=== PATIENT | female | born 1990 | race Two or more races ===

== ENCOUNTER → 2023-08-31 | Outpatient (CLI) | payer OTHER ==
[2023-08-31 13:54] LABS: HEMATOCRIT 38.8 % (36.0-47.0); HEMOGLOBIN 12.8 g/dl (12.0-15.5); MEAN CORPUSCULAR HEMOGLOBIN 30.3 pg (27.0-33.0); MEAN CORPUSCULAR VOLUME 91.9 fl (80.0-96.0); PLATELET COUNT, AUTOMATED 176 10^3/uL (150-450); RED BLOOD COUNT 4.22 10^6/uL (4.00-5.40); WHITE BLOOD COUNT 5.6 10^3/uL (4.0-10.0)
[2023-08-31 14:48] LABS: HIV 1&2 SCREEN NEGATIVE (NEGATIVE)
[2023-08-31 14:57] LABS: HEPATITIS C VIRUS ABY INDEX 0.04 INDEX (<0.8)
[2023-08-31 15:06] LABS: GC DNA AMPLIFICATION NEGATIVE (NEGATIVE)
== END ==
LOC: M PLALAB 11:27
PROVIDERS: ATTEND Specialist
DX: Z34.01 Encounter for supervision of normal first pregnancy, first trimester (principal)

== ENCOUNTER → 2023-09-07 | Outpatient (CLI) | payer OTHER | LOC: M PLALAB 13:34 | PROVIDERS: ATTEND Specialist | DX: Z34.01 Encounter for supervision of normal first pregnancy, first trimester (principal) ==

== ENCOUNTER → 2023-11-03 | Outpatient (CLI) | payer OTHER ==
[2023-11-03 16:52] LABS: FREE T4 0.93 NG/DL (0.89-1.76)
[2023-11-03 16:53] LABS: THYROID STIMULATING HORMONE 3.865 uIU/ML (0.55-4.78)
== END ==
LOC: M PLALAB 14:13
PROVIDERS: ATTEND Specialist
DX: Z34.92 Encounter for supervision of normal pregnancy, unspecified, second trimester (principal)

== ENCOUNTER → 2023-11-03 | Outpatient (CLI) | payer OTHER | LOC: M WHC 12:35 | PROVIDERS: ATTEND Specialist | DX: Z34.01 Encounter for supervision of normal first pregnancy, first trimester (principal) ==

== ENCOUNTER → 2023-12-15 | Outpatient (CLI) | payer OTHER ==
[2023-12-15 16:34] LABS: HEMATOCRIT 34.6 % (36.0-47.0); HEMOGLOBIN 11.5 g/dl (12.0-15.5); MEAN CORPUSCULAR HEMOGLOBIN 29.3 pg (27.0-33.0); MEAN CORPUSCULAR HGB CONC 33.2 g/dl (32.0-36.5); MEAN CORPUSCULAR VOLUME 88.3 fl (80.0-96.0); PLATELET COUNT, AUTOMATED 160 10^3/uL (150-450); RED BLOOD COUNT 3.92 10^6/uL (4.00-5.40); WHITE BLOOD COUNT 7.4 10^3/uL (4.0-10.0)
== END ==
LOC: M PLALAB 13:41
PROVIDERS: ATTEND Specialist
DX: Z34.82 Encounter for supervision of other normal pregnancy, second trimester (principal)

== ENCOUNTER → 2023-12-20 | Outpatient (CLI) | payer OTHER | LOC: M WHC 10:39 | PROVIDERS: ATTEND Specialist | DX: O32.2XX0 Maternal care for transverse and oblique lie, not applicable or unspecified (principal); Z3A.26 26 weeks gestation of pregnancy ==

== ENCOUNTER → 2024-02-29 | Outpatient (REF) | payer OTHER | LOC: M SFHCWAGY 09:51 | PROVIDERS: ATTEND Advanced Practice Midwife | DX: Z34.93 Encounter for supervision of normal pregnancy, unspecified, third trimester (principal); Z36.85 Encounter for antenatal screening for Streptococcus B ==

== ENCOUNTER 2024-03-08 | Outpatient (CLI) | payer OTHER ==
[~2024-03-08] VITALS: Ht 170.2 cm; Wt 141.9 kg
[2024-03-08] MEDS ORDERED: TIRO88CA3 PO (00:11)
[2024-03-08] MEDS ORDERED: PRENTAB9 PO (00:11)
[2024-03-08] MEDS ORDERED: HOME MED LIST COMPLETE! XX SCH (00:15)
[2024-03-08 00:29] VITALS: BP 114/77
== END 2024-03-08 00:47 | disposition home or self-care (01) ==
LOC: M LDO
PROVIDERS: ATTEND Specialist
DX: O36.8130 Decreased fetal movements, third trimester, not applicable or unspecified (principal); Z3A.37 37 weeks gestation of pregnancy; Z91.09 Other allergy status, other than to drugs and biological substances
CPT/HCPCS: 59025; G0463

== ENCOUNTER 2024-03-17 01:58 | Outpatient (CLI) | payer OTHER ==
[~2024-03-17 01:58] MED LIST: PRENTAB9 PO; TIRO88CA3 PO
== END 2024-03-17 02:44 | disposition home or self-care (01) ==
LOC: M LDO 01:58
PROVIDERS: ATTEND Obstetrics & Gynecology
DX: O47.1 False labor at or after 37 completed weeks of gestation (principal); Z91.048 Other nonmedicinal substance allergy status; Z3A.39 39 weeks gestation of pregnancy
CPT/HCPCS: 59025; G0463

== ENCOUNTER 2024-03-29 16:52 | Inpatient (IN) | payer OTHER ==
[2024-03-29] VITALS (20 sets, daily range): BP systolic 87–140; BP diastolic 50–79
[~2024-03-29] VITALS: Ht 170.2 cm; Wt 143.5 kg
[2024-03-29] MEDS ORDERED: CARBOPROST TROMETHAMINE 250 MCG/ML AMP IM PRN (17:10)
[2024-03-29] MEDS ORDERED: TRANEXAMIC ACID INJection 1,000 MG in NS 100 ML IV PRN (17:10)
[2024-03-29] MEDS ORDERED: LR 1,000 ML IV SCH (17:10)
[2024-03-29] MEDS ORDERED: HOME MED LIST COMPLETE! XX SCH (17:10)
[2024-03-29] MEDS ORDERED: OXYTOCIN DRIP 30 UNITS in IV 1 EA IV PRN (17:10)
[2024-03-29] MEDS ORDERED: METHYLERGONOVINE MALEATE 0.2MG/ML 1ML VIAL IM PRN (17:10)
[2024-03-29 18:36] LABS: HEMATOCRIT 34.8 % (36.0-47.0); HEMOGLOBIN 11.4 g/dl (12.0-15.5); MEAN CORPUSCULAR HEMOGLOBIN 28.3 pg (27.0-33.0); MEAN CORPUSCULAR HGB CONC 32.8 g/dl (32.0-36.5); MEAN CORPUSCULAR VOLUME 86.4 fl (80.0-96.0); PLATELET COUNT, AUTOMATED 177 10^3/uL (150-450); RED BLOOD COUNT 4.03 10^6/uL (4.00-5.40); WHITE BLOOD COUNT 7.8 10^3/uL (4.0-10.0)
[2024-03-29 19:11] LABS: HEPATITIS C VIRUS ABY INDEX < 0.02 INDEX (<0.8)
[2024-03-29] MEDS: LACTATED RINGER'S 1000 ML IV STA (19:21)
[2024-03-29] MEDS: OXYTOCIN DRIP 30 UNITS in IV 1 EA IV SCH (19:22)
[2024-03-29] MEDS ORDERED: diphenhydrAMINE 50MG/ML VIAL IV PRN (22:20)
[2024-03-29] MEDS ORDERED: NALOXONE INJ 0.4MG/1ML VIAL IV PRN (22:20)
[2024-03-29] MEDS ORDERED: EPIDURAL/PCA KEYS XX PRN (22:20)
[2024-03-29] MEDS ORDERED: ONDANSETRON 4MG 2ML VIAL IV PRN (22:20)
[2024-03-29] MEDS: FENTANYL/ROPIVACAINE/NACL BAG 100 ML EPIDURAL SCH (22:28)
[2024-03-29] MEDS: LR 500 ML IV PRN (22:29)
[2024-03-29] MEDS: CALCIUM CARBONATE 500 MG CHEW U/D PO PRN (23:23)
[2024-03-30] VITALS (33 sets, daily range): BP systolic 68–138; BP diastolic 38–70; O2SAT 97–100
[2024-03-30] MEDS: ePHEDrine SULFATE 25 MG/5 ML(5MG/ML) SYRINGE IVP PRN (02:34)
[2024-03-30] MEDS: LIDOCAINE 1% MDV 20ML VIAL INFIL PRN (06:14)
[2024-03-30] MEDS ORDERED: SILVER NITRATE APPLICATOR (1 = QTY 10) TOP ONE (06:35)
[2024-03-30] MEDS ORDERED: IBUPROFEN 600MG TAB PO PRN (06:45)
[2024-03-30] MEDS ORDERED: RHO(D) IMMUNE GLOBULIN/MALTOSE 500MCG(2500IU)/2.2ML VIAL (WINRHO) IM SCH (06:45)
[2024-03-30] MEDS ORDERED: ANUSOL HC CREAM 30GM TOP PRN (06:45)
[2024-03-30] MEDS ORDERED: ACETAMINOPHEN TAB 650MG DOSE (2X325MG) PO PRN (06:45)
[2024-03-30] MEDS ORDERED: METHYLERGONOVINE MALEATE 0.2 MG TAB PO PRN (06:45)
[2024-03-30] MEDS ORDERED: DIBUCAINE 1% OINTMENT 30GM TOP PRN (06:45)
[2024-03-30] MEDS: PRENATAL VITAMINS CHEWABLE TABLET PO SCH (10:24)
[2024-03-30] MEDS: ACETAMINOPHEN 500 MG TAB PO PRN (10:25)
[2024-03-30] MEDS: IBUPROFEN 800 MG TAB PO PRN (18:42)
[2024-03-31 06:00] VITALS: BP 123/61; O2SAT 98
[2024-03-31] MEDS: DOCUSATE SODIUM 100MG CAPSULE PO PRN (08:02)
[2024-04-01] MEDS ORDERED: MEASLES,MUMPS,RUBELLA VACCINE INJ (MMR-II) SC.IMMUN ONE (09:00)
== END 2024-03-31 15:00 | disposition home or self-care (01) | DRG 807 ==
LOC: M LDI 16:52 → M OBS 03-30 09:01
PROVIDERS: ADMIT Advanced Practice Midwife; ATTEND Advanced Practice Midwife
PROC: 3E033VJ Introduction of Other Hormone into Peripheral Vein, Percutaneous Approach (ICD-10-PCS; 2024-03-29)
PROC: 10E0XZZ Delivery of Products of Conception, External Approach (ICD-10-PCS; principal; 2024-03-30)
PROC: 0HQ9XZZ Repair Perineum Skin, External Approach (ICD-10-PCS; 2024-03-30)
DX: O48.0 Post-term pregnancy (principal); Z37.0 Single live birth; Z3A.40 40 weeks gestation of pregnancy; E06.3 Autoimmune thyroiditis; O99.284 Endocrine, nutritional and metabolic diseases complicating childbirth; Z79.890 Hormone replacement therapy; Z91.048 Other nonmedicinal substance allergy status; O70.0 First degree perineal laceration during delivery

== ENCOUNTER → 2024-05-11 | Outpatient (CLI) | payer MEDICAID ==
[2024-05-11 19:11] LABS: THYROID STIMULATING HORMONE 0.926 uIU/ML (0.55-4.78)
[2024-05-11 19:12] LABS: FREE T4 0.97 NG/DL (0.89-1.76)
== END ==
LOC: M PLALAB 15:53
PROVIDERS: ATTEND Advanced Practice Midwife
DX: E03.9 Hypothyroidism, unspecified (principal)